=== PATIENT | male | born 1960 | race Caucasian/White ===

== ENCOUNTER 2017-12-14 18:31 | Inpatient (IN) | payer MEDICARE ==
[~2017-12-14 18:31] MED LIST: ISOVUE-370 76%-LOCM 1 ML ONE
[2017-12-14] MEDS ORDERED: Ondansetron HCl/PF 4 MG/2 ML Vial ONE (18:51)
[2017-12-14 18:58] LABS: #Basophils 0.1 thou/uL (0.0-0.2); #Eosinphils 0.6 thou/uL (0.0-0.7); #Lymphocytes 4.2 thou/uL (1.20-3.40); #Monocytes 1.9 thou/uL (0.11-0.59); %Basophils 0.5 % (0.0-1.0); %Eosinophils 2.9 % (0.0-10.0); %Lymphocytes 21.2 % (21.0-51.0); %Monocytes 9.7 % (0.0-10.0); %Neutrophils 65.7 % (42.0-75.0); Hemoglobin 12.3 g/dL (14.0-18.0); Mean Corpuscular HGB CONC 32.4 g/dL (32.0-36.0); Mean Corpuscular Hemoglobin 27.9 pg (27.0-31.0); Mean Corpuscular Volume 85.9 fL (78.0-98.0); Mean Platelet Volume 8.2 fL (7.4-10.4); Platelet Count 478 thou/uL (130-400); White Blood Cell (WBC) Count 19.7 thou/uL (4.8-10.8)
[2017-12-14 19:07] LABS: Bilirubin Negative (Negative); Blood, Urine Large (Negative); Clarity CLOUDY (Clear); Glucose, Urine (Dipstick) Negative (Negative); Leukocyte Large (Negative); Nitrite Negative (Negative); Protein, Urine (Dipstick) 30 mg/dL (Neg-Trace); Specific Gravity, Urine 1.007 (1.002-1.036); Urobilinogen 0.2 mg/dL (0.2-1.0); pH, Urine 5.5 (5.0-9.0)
[2017-12-14 19:10] LABS: Bacteria/HPF None Seen HPF (None Seen); Hyaline Casts/LPF 0-3 HYALINE CAST LPF (0-3 Hyaline); Pathc Cast-AUWi Flag 1.01 (0-2.49); RBC/HPF GREATER THAN 50-TNTC HPF (0-3); Squamous Epithelial None Seen HPF (0-3)
[2017-12-14 19:18] LABS: ALT (SGPT) 41 U/L (8-55); AST (SGOT) 20 U/L (5-34); Albumin 4.4 g/dL (3.5-5.0); Alkaline Phosphatase 102 U/L (40-150); Anion Gap 16 mmol/L (10-20); BUN (Urea Nitrogen) 24 mg/dL (8.4-25.7); Bilirubin, Total 0.2 mg/dL (0.2-1.2); Calc. Creatinine Clearance 0 mL/min (70-130); Calcium 9.4 mg/dL (7.8-10.44); Carbon Dioxide 25 mmol/L (22-29); Chloride 102 mmol/L (98-107); Estimated GFR-MDRD 46; Globulin 3.6 g/dL (2.4-3.5); Glucose 254 mg/dL (70-105); Lipase 87 U/L (8-78); Sodium 138 mmol/L (136-145)
--- NOTE | 2017-12-14 20:02 | CT ---
CT OF THE ABDOMEN AND PELVIS: Date: 12-14-17 Comparison: 11-18-16 History: Abdominal pain, most prominent in the suprapubic region. Technique: Serial axial CT imaging obtained at 5 mm intervals from lung bases through pubic symphysis with IV contrast. Coronal reformatted imaging obtained. FINDINGS: The visualized lung bases appear unremarkable. Cholecystectomy clips are present. No free intraperitoneal air. The hepatic parenchyma is diffusely hypodense suggesting steatosis. The pancreas is grossly unremarka ble. The spleen is nonvisualized, presumably surgically absent. Nonspecific adrenal nodule noted on the right measuring approximately 1.7 cm, as seen on the prior ex am. There is a low density upper pole right renal lesion with Hounsfield units of 15-20 measuring 2.9 cm, similar when compared to prior imaging. This lesion is slightly more prominent than on a prior CT pe rformed 01-25-14. Mildly complex cyst is favored. Follow up renal ultrasound suggested. There is prominent new hydronephrosis and hydroureter, right greater than left, the bilateral ureters dilated to the level of the ureterovesicular junction. The urinary bladder is partially decompressed . In keeping with the provided history of bladder cancer, there is irregular diffuse nodular thickeni ng of the urinary bladder wall. No discrete renal stone disease is seen. Bilateral hydroureter/hydron ephrosis may be on the basis of stricture at the level of bilateral ureterovesicular junctions or on the basis of obstruction from tumor. There is a small fat containing periumbilical hernia. Limited assessment of the bowel without oral co ntrast media demonstrates no evidence for obstruction. The appendix appears grossly unremarkable. There is a subcentimeter right retrocrural node, stable. Subcentimeter stable retroperitoneal nodes a re seen. No lymphadenopathy is appreciated within the abdomen or pelvis. The prostate gland is mildly prominent and heterogeneous, not well characterized on this examination. Review of the osseous structures demonstrates multiple old posterior bilateral rib fractures. No acut e osseous abnormality is seen. IVC filter in place. IMPRESSION: 1. New bilateral hydronephrosis and hydroureter extending to the level of the ureterovesicular juncti on, right greater than left. Urinary bladder demonstrates multifocal nodular thickening, consistent w ith the provided history of bladder cancer. Bilateral hydronephrosis/hydroureter could be on the basi s of underlying tumor at the level of the UVJ bilaterally versus underlying stricture. Urology consul tation is thus advised. 2. Nonspecific adrenal nodule on the right. 3. Hepatic steatosis. 4. Results called to Dr. Conte at 7:20 p.m. 12-14-14. Code CR POS: LEATHA
[2017-12-14] MEDS ORDERED: cefTRIAXone\\ROCEPHIN 1 GM VIAL ONE (20:36)
--- NOTE | 2017-12-14 21:53 | PDOC.FPRHP ---
- History of Present Illness Chief Complaint: R back and testicular pain History of Present Illness: Mr. Davidson is a very pleasant 57YO gentleman with a PMH significant for DMII on insulin & bladder CA who presented to the ED due to worsening rigt low back pain & r-side groin and testicular pain that has gotten progressively worse over the last 4-5 days. He describes the pain as a constant, sharp, currently 8/10 pain that is exacerbated with movement. He says it is somewhat relieved by morphine but that his home [place] dose did not help much with the pain. He has some associated decreased appetite but denies any fever/chills, nausea or vomiting. He states that he is incontinent and has to wear diapers 2/ 2 his bladder CA. However, his urine output has been normal since the onset of the pain with occasional hematuria noted. Of note, the patient has a history of bladder CA and was scheduled to have surgery to remove his bladder in [place] on 12/13 but has since moved back to [place], [place] and would prefer to have his surgery done here. ED Course: The patient was given 1g IV Rocephin per urology's recommendation & IV morphine in the ED. - Allergies/Adverse Reactions Allergies Allergy/AdvReac Type Severity Reaction Status Date / Time venom-honey bee Allergy Verified 12/14/17 22:32 [bee venom (honey bee)] - Home Medications Medication Instructions Recorded Confirmed Type Gabapentin 1,200 mg PO TID 01/11/14 12/14/17 History Levothyroxine Sodium 88 mcg PO DAILY 01/11/14 12/14/17 History glipiZIDE [Glucotrol] 5 mg PO BID 01/11/14 12/14/17 History Amitriptyline HCl [Elavil] 50 mg PO HS 12/14/17 12/14/17 History Amlodipine [Norvasc] 5 mg PO DAILY 12/14/17 12/14/17 History Dexlansoprazole [Dexilant] 60 mg PO DAILY 12/14/17 12/14/17 History Escitalopram Oxalate [Lexapro] 10 mg PO DAILY 12/14/17 12/14/17 History HYDROcodone/Acetaminophen [[place] 1 each PO QID PRN 12/14/17 12/14/17 History 10-325 Tablet] Insulin NPH Human Isophane 40 unit SC BID 12/14/17 12/14/17 History [NovoLIN N] Losartan Potassium [Cozaar] 50 mg PO DAILY 12/14/17 12/14/17 History Tolterodine Tartrate [Detrol LA] 4 mg PO BID 12/14/17 12/14/17 History metFORMIN [Glucophage] 500 mg PO TID-WM 12/14/17 12/14/17 History - History PMHx: insulin dependent DMII, diabetic neuropathy, hypothyroidism, HTN, active bladder cancer PSHx: spleenectomy, IVC filter, crush injury-flail chest, cholecystectomy, & cystoscopies related to bladder CA treatment FHx: Mother - HTN & DMII Father - HTN Social: Drinks socially about twice/month. Former smoker but quit 10 years ago. Smoked 2ppd since her was 10 before quitting. No drug abuse. - Review of Systems General: reports: weight/appetite/sleep changes (Decreased appetite). denies: fever/chills Eyes: denies: eye pain, vision changes ENT: denies: nasal congestion, rhinorrhea Respiratory: denies: cough, shortness of breath Cardiovascular: denies: chest pain Gastrointestinal: reports: diarrhea. denies: nausea, vomiting, constipation, abdominal pain Genitourinary: reports: incontinence, other (+ hematuria & right testicular pain ) Skin: denies: rashes, itching Musculoskeletal: reports: pain (right lower back pain). denies: arthritis/ arthralgias Neurological: denies: numbness, weakness - Vital signs BP: 129/104 HR: 98 RR: 20 Tmax: 98.1F Pox: 96% on RA Wt: 98.99kg - Physical Exam Constitutional: NAD, awake, alert and oriented, well developed HEENT: normocephalic and atraumatic, PERRLA, EOMI, conjunctiva clear, grossly normal vision, grossly normal hearing, oropharynx clear, other (Poor dentition) Neck: supple, FROM, no LAD Heart: RRR, normal S1/S2, no murmurs/rubs/gallops, no edema Lungs: CTAB, no respiratory distress, good air movement, no wheezing Abdomen: bowel sounds present, other (+ distension & tender in RLQ/groin to palpation. Also tender in R mid-abdomen over prior rib fracture from flail chest.) Musculoskeletal: normal structure, ROM grossly normal, other (R flank tender to palpation) Neurological: no focal deficit, CN II-XII intact, normal sensation Skin: no rash/lesions, good turgor, other (2 surgical scar visible on abdomen) Heme/Lymphatic: no unusual bruising or bleeding Psychiatric: normal mood and affect, good judgment and insight Additional comment: exam- Right testicle diffusely tender to palpation but not exqusitely tender on exam. No significant erythema or edema noted compared with the left. No penile discharge or sores noted. FMR H&P: Results - Labs Result Diagrams: 12/15/17 04:07 12/15/17 04:07 Lab results: WBC 19.7 thou/uL (4.8-10.8) H 12/14/17 18:47 Hgb 12.3 g/dL (14.0-18.0) L 12/14/17 18:47 Hct 37.8 % (42.0-52.0) L 12/14/17 18:47 MCV 85.9 fL (78.0-98.0) 12/14/17 18:47 Plt Count 478 thou/uL (130-400) H 12/14/17 18:47 Neutrophils % 65.7 % (42.0-75.0) 12/14/17 18:47 Sodium 138 mmol/L (136-145) 12/14/17 18:47 Potassium 5.0 mmol/L (3.5-5.1) 12/14/17 18:47 Chloride 102 mmol/L (98-107) 12/14/17 18:47 Carbon Dioxide 25 mmol/L (22-29) 12/14/17 18:47 BUN 24 mg/dL (8.4-25.7) 12/14/17 18:47 Creatinine 1.55 mg/dL (0.6-1.3) H 12/14/17 18:47 Glucose 254 mg/dL (70-105) H 12/14/17 18:47 Calcium 9.4 mg/dL (7.8-10.44) 12/14/17 18:47 Total Bilirubin 0.2 mg/dL (0.2-1.2) 12/14/17 18:47 AST 20 U/L (5-34) 12/14/17 18:47 ALT 41 U/L (8-55) 12/14/17 18:47 Alkaline Phosphatase 102 U/L (40-150) 12/14/17 18:47 Serum Total Protein 8.0 g/dL (6.0-8.3) 12/14/17 18:47 Albumin 4.4 g/dL (3.5-5.0) 12/14/17 18:47 Lipase 87 U/L (8-78) H 12/14/17 18:47 Urine Ketones Negative mg/dL (Negative) 12/14/17 18:57 Urine Blood Large (Negative) H 12/14/17 18:57 Urine Nitrite Negative (Negative) 12/14/17 18:57 Ur Leukocyte Esterase Large (Negative) H 12/14/17 18:57 Urine RBC GREATER THAN 50-TNTC HPF (0-3) H 12/14/17 18:57 Urine WBC Greater Than 50-TNTC HPF (0-3) H 12/14/17 18:57 Ur Squamous Epith Cells None Seen HPF (0-3) 12/14/17 18:57 Urine Bacteria None Seen HPF (None Seen) 12/14/17 18:57 - Radiology Interpretation CT scan - abdomen Status: report reviewed by me Additional comment: Bilateral hydronephrosis of UBJ consistent with obstruction 2/2 tumor. FMR H&P: A/P - Problem List (1) CHANDANA (acute kidney injury) Current Visit: Yes Status: Acute Code(s): N17.9 - ACUTE KIDNEY FAILURE, UNSPECIFIED (2) Testicular pain, right Current Visit: Yes Status: Acute Code(s): N50.811 - RIGHT TESTICULAR PAIN (3) Bladder cancer Current Visit: Yes Status: Acute (4) HTN (hypertension) Current Visit: Yes Status: Acute Code(s): I10 - ESSENTIAL (PRIMARY) HYPERTENSION (5) Type 2 diabetes mellitus with diabetic neuropathy Current Visit: Yes Status: Acute Code(s): E11.40 - TYPE 2 DIABETES MELLITUS WITH DIABETIC NEUROPATHY, UNSP (6) Hypothyroidism Current Visit: Yes Status: Acute Code(s): E03.9 - HYPOTHYROIDISM, UNSPECIFIED (7) GERD (gastroesophageal reflux disease) Current Visit: Yes Status: Acute Code(s): K21.9 - GASTRO-ESOPHAGEAL REFLUX DISEASE WITHOUT ESOPHAGITIS (8) Depression Current Visit: Yes Status: Acute Code(s): F32.9 - MAJOR DEPRESSIVE DISORDER , SINGLE EPISODE, UNSPECIFIED - Plan 57YO male with PMH significant for bladder cancer who presented with a CC of right-sided flank, groin and testicular pain that has progressively worsened over the last 4-5 days. 1. CHANDANA: - Cr up to 1.5 compared to last measured value we have in 2013 of 0.67. - CT Abd/pelvis significant for bilateral hydronephrosis that is consistent with obstruction from bladder cancer per radiology. - Plan to consult urology in the AM for possible placement of percutaneous nephrostomy tubes until his surgery can be scheduled. - Rudy continue with PO hydration. - Patient received one dose of rocephin in the ED. Will consider continuing Abx until urology can relieve the obstruction as patient is at increased risk of developing pyelonephritis. - Will get repeat BMP in the AM to continue to monitor renal function. 2. right testicular pain: - Could be referred pain from bladder cancer but cannot r/o torsion or infection at this point. - WBC elevated at 19.7 but patient has remained afebrile. UA was not significant for a UTI but will get a urine culture. - Will get a testicular U/S. 3. Bladder Cancer: - Aware, will consult urology in the AM with hopes of patient being able to establish care here in [place]. - Will continue IV morphine as well as PO norco PRN for pain control. 4. HTN: - Aware. - Will resume home meds. 5. DMII with neuropathy: - Aware. - Will resume home insulin dosing. 6. Hypothyroidism: - Aware. - Will resume home synthroid dose. 7. Depression: - Will resume home meds. 7. GERD: - Aware. - Will resume home meds. FMR H&P: Upper Level - Pertinent history Patient is a 57 year old male who presents to the ED with chief complaint of nausea, back pain, and right testicular pain. His symptoms have been ongoing for the past several days and have been progressively worsening. No inciting factors/trauma. He denies fever, chills, dysuria. He reports reduced PO intake related to this. Pt recently moved to this area from [place], He had most of his urological care there. He was scheduled to have bladder removal surgery there, but pt would like to establish care with a urologist in town. - Pertinent findings Physical Exam: General: Alert and oriented x 3; in no distress. exam: Generalized TTP of right testicle. No scrotal swelling/edema. - Plan Date/Time: 12/14/172144 I, Jonelle Middleton, have evaluated this patient and agree with findings/plan as outlined by consultant internship resident. Pertinent changes/additions are listed here. 1. Acute Testicular Pain - will rule out torsion with Testicular US/doppler 2. Bilateral hydronephrosis and hydroureter, likely secondary to malignancy vs ureteral strictures. - Urology consulted from ED, likely plan to place bilateral percutaneous nephrostomy tubes. - will continue IV Ceftriaxone 3. Acute kidney injury - likely secondary to obstructive uropathy - BUN: Cr < 15 - will recheck-BMP in AM; will likely improve with urological intervention 4. Diabetes - Continue home mediations. - A1C 5. Depression - home meds 6. Hypertension - resume home meds. 7. Hypothyroidism - resume home meds. Attending Addendum - Attending Addendum Date/Time: 12/15/1737 I personally evaluated the patient and discussed the management with Dr. Wright and Kane. I agree with and repeated the History, Examination, Assessment and Plan documented above with any addition or exceptions noted below. Pt with "over 4 days" of testicular pain that comes and goes and is absent right now. No fever, chills, nausea/vomiting, or other acute complaints. Exam relatively unremarkable. No acute findings on testicular exam. No TTP, no elevation, no cremaster able to be elicited, no dot. CHANDANA 2/2 obstructive uropathy, presumably 2/2 bladder cancer. Urology has been consulted. Testicular pain. I anticipate referred from hydronephrosis unless that is longstanding. Sono ordered to r/o torsion. DVT, GI ppx.
[2017-12-14 22:05] VITALS: BMI 34.7
[2017-12-14] MEDS ORDERED: Morphine 4 MG/ML VIAL IV PRN (22:11)
[2017-12-14] MEDS ORDERED: Ondansetron HCl/PF 4 MG/2 ML Vial IVP PRN (22:14)
[2017-12-14] MEDS ORDERED: Morphine 4 MG/ML VIAL IV SCH (22:21)
[2017-12-15] MEDS: HYDROcodone/Acetaminophen 10/325 mg Tablet PO PRN ×3 (00:17→13:45)
[2017-12-15] MEDS: Levothyroxine Sodium 88 MCG TAB PO SCH (04:08)
[2017-12-15 04:34] LABS: Band 4 % (5-11); Eosinophils 3 % (0-10); Hemoglobin 11.7 g/dL (14.0-18.0); Lymphocytes 29 % (21-51); MDiff Complete? YES; Mean Corpuscular HGB CONC 33.2 g/dL (32.0-36.0); Mean Corpuscular Hemoglobin 28.4 pg (27.0-31.0); Mean Corpuscular Volume 85.7 fL (78.0-98.0); Mean Platelet Volume 7.8 fL (7.4-10.4); Metamyelocyte 3 % (0-0); Monocytes 8 % (0-10); Neutrophil 53 % (42-75); PLT Morphology Comment Appears Increased; Platelet Count 463 thou/uL (130-400); RBC Distribution Width 14.1 % (11.5-14.5); Red Blood Cell (RBC) Count 4.11 mill/uL (4.70-6.10); White Blood Cell (WBC) Count 13.3 thou/uL (4.8-10.8)
[2017-12-15 04:35] LABS: Anion Gap 16 mmol/L (10-20); BUN (Urea Nitrogen) 26 mg/dL (8.4-25.7); Calc. Creatinine Clearance 65 mL/min (70-130); Carbon Dioxide 24 mmol/L (22-29); Chloride 104 mmol/L (98-107); Estimated GFR-MDRD 42; Glucose 102 mg/dL (70-105); Potassium 4.5 mmol/L (3.5-5.1); Sodium 139 mmol/L (136-145)
--- NOTE | 2017-12-15 06:14 | PDOC.FM ---
- Subjective Subjective: This is a 57 yo M with PMH significant for bladder cancer found to have bilateral hydronephrosis that is consistent with obstruction from bladder cancer per radiology. On exam today, patient states his pain in his testicle is improved. He notes mild back pain localized in the lower left back and does not radiate. Patient currently NPO for any potential procedures by IR. The patient denies SOB, chest pain, abdominal pain, fever, or NVD. - Objective Vital Signs & Weight: Vital Signs (12 hours) Temp Pulse Resp BP Pulse Ox 12/15/17 03:16 97.8 F 82 16 113/63 95 12/15/17 00:16 98.3 F 94 16 102/58 L 95 12/14/17 22:30 98.1 F 96 18 93 L 12/14/17 21:59 98.1 F 96 18 148/84 H 93 L Weight Weight 97.568 kg Result Diagrams: 12/15/17 04:07 12/15/17 04:07 <Rosa Maria Tran - Last Filed: 12/15/17 12:31> - Objective Vital Signs & Weight: Vital Signs (12 hours) Temp Pulse Resp BP Pulse Ox 12/15/17 15:31 98.2 F 83 16 105/62 92 L 12/15/17 11:39 98 F 89 18 101/64 95 12/15/17 08:20 97.6 F 84 20 93 L 12/15/17 07:45 97.6 F 84 20 102/56 L 93 L Weight Admit Weight 97.568 kg Weight 97.568 kg I&O: 12/14/17 12/15/17 12/16/17 06:59 06:59 06:59 Intake Total 100 Output Total 100 Balance 0 Result Diagrams: 12/15/17 04:07 12/15/17 04:07 <Ann Lake - Last Filed: 12/15/17 16:30> Phys Exam - Physical Examination Constitutional: NAD Patient is resting comfortably on the bed HEENT: moist MMs, sclera anicteric Neck: no JVD, supple, full ROM Respiratory: no wheezing, clear to auscultation bilateral Cardiovascular: RRR, no significant murmur Gastrointestinal: soft, non-tender, positive bowel sounds no CVA tenderness Musculoskeletal: no edema, pulses present TTP in lower left back Neurological: non-focal, moves all 4 limbs Psychiatric: normal affect, A&O x 3 Skin: no rash, normal turgor <Rosa Maria Tran - Last Filed: 12/15/17 12:31> Dx/Plan (1) CHANDANA (acute kidney injury) Code(s): N17.9 - ACUTE KIDNEY FAILURE, UNSPECIFIED Status: Acute (2) Bladder cancer Status: Acute (3) Depression Code(s): F32.9 - MAJOR DEPRESSIVE DISORDER, SINGLE EPISODE, UNSPECIFIED Status : Acute (4) GERD (gastroesophageal reflux disease) Code(s): K21.9 - GASTRO-ESOPHAGEAL REFLUX DISEASE WITHOUT ESOPHAGITIS Status: Acute (5) HTN (hypertension) Code(s): I10 - ESSENTIAL (PRIMARY) HYPERTENSION Status: Acute (6) Hypothyroidism Code(s): E03.9 - HYPOTHYROIDISM, UNSPECIFIED Status: Acute (7) Testicular pain, right Code(s): N50.811 - RIGHT TESTICULAR PAIN Status: Acute (8) Type 2 diabetes mellitus with diabetic neuropathy Code(s): E11.40 - TYPE 2 DIABETES MELLITUS WITH DIABETIC NEUROPATHY, UNSP Status: Acute - Plan Plan: 57YO male with PMH significant for bladder cancer who presented with a CC of right-sided flank, groin and testicular pain that has progressively worsened over the last 4-5 days. CHANDANA - Cr on admission: 1.5 compared to last measured value we have in 2014 of 0.67. Today Cr is 1.69 - CT Abd/pelvis significant for bilateral hydronephrosis that is consistent with obstruction from bladder cancer per radiology. - Plan to consult urology in the AM for possible placement of percutaneous nephrostomy tubes until his surgery can be scheduled. - Will continue with PO hydration. - Patient received one dose of rocephin in the ED. Will consider continuing Abx until urology can relieve the obstruction as patient is at increased risk of developing pyelonephritis. - Will get repeat BMP in the AM to continue to monitor renal function. Right testicular pain - Could be referred pain from bladder cancer but cannot r/o torsion or infection at this point. - WBC elevated at 19.7 -> 13.3. Pt afebrile - UA was not significant for a UTI but will get a urine culture - Testicular U/S: no acute findings Bladder Cancer - Will consult urology - Dr. Paniagua or Dr. Hopper - in the AM with hopes of patient being able to establish care here in [place] - Will continue IV morphine as well as PO norco PRN for pain control. HTN - Will resume home meds. DMII with neuropathy - Will resume home insulin dosing Hypothyroidism - Will resume home synthroid dose Depression - Will resume home meds GERD - Will resume home meds DISPO: home within 1-2 days with follow up with Urology CODE: FULL Case discussed with Dr. Lake <Rosa Maria Tran - Last Filed: 12/15/17 12:31> Attending Addendum - Attending Addendum Date/Time: 12/15/17 2060 I personally evaluated the patient and discussed the management with Dr. Tran. I agree with the History, Examination, Assessment and Plan documented above with any addition or exceptions noted below. Pt with hydronephrosis and hydroureter. Creatinine increased today. WBC improving on antibiotics. Urology has been consulted and we are waiting on their recommendations. Pain is better controlled. <Ann Lake - Last Filed: 12/15/17 16:30>
--- NOTE | 2017-12-15 06:26 | ULT ---
SCROTAL ULTRASOUND: 12/14/2017 HISTORY: Right-sided testicular pain. COMPARISON: None. TECHNIQUE: Multiplanar galeas-scale sonographic imaging of the scrotal contents with Doppler interrogation of the testicles, including color-flow and spectral analysis. FINDINGS: Normal blood flow noted within the bilateral testicles. No intratesticular mass noted on either side . The right testicle measures 4.6 x 2 x 2.7 cm, and the right epididymal head measures approximatel y 1.2 x 0.9 cm. There is a 6 mm right epididymal head cyst. The left testicle measures 3.3 x 2.1 x 2.7 cm and demonstrates normal blood flow without evidence for mass. Small epididymal head cysts are noted, measuring up to 5 mm on the left. Small bilateral hydroceles are noted. IMPRESSION: No acute findings. POS: ENRIQUE
[2017-12-15] MEDS ORDERED: cefTRIAXone\\ROCEPHIN 1 GM in Sodium Chloride 0.9% 100 ML IVPB SCH (07:00)
[2017-12-15] MEDS ORDERED: metFORMIN 500 MG TAB PO SCH ×3 (08:00→09:00)
[2017-12-15] MEDS: Amlodipine 5 MG TAB PO SCH (08:20)
[2017-12-15] MEDS: Gabapentin 300 MG CAP PO SCH ×3 (08:20→21:53)
[2017-12-15] MEDS: Escitalopram Oxalate 10 mg Tablet PO SCH (08:20)
[2017-12-15] MEDS: Losartan 25 MG TAB PO SCH (08:21)
[2017-12-15] MEDS: TROSPIUM 20 MG TABLET PO SCH ×2 (08:21→21:48)
[2017-12-15] MEDS: glipiZIDE 5 MG TAB PO SCH ×2 (08:29→21:48)
[2017-12-15] MEDS ORDERED: Non-Formulary Item 1 EACH (Dexlansoprazole [Dexilant] 60 MG) PO SCH (09:00)
[2017-12-15] MEDS ORDERED: Tolterodine Tartrate LA 4 MG CAP PO SCH (09:00)
[2017-12-15] MEDS: metFORMIN 500 MG TAB PO SCH ×2 (11:50→17:43)
[2017-12-15 17:58] LABS: Prothrombin Time 13.1 SEC (12.0-14.7)
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
[2017-12-15] MEDS: Amitriptyline HCl 25 MG TAB PO SCH (21:48)
[2017-12-15] MEDS ORDERED: Dextrose 50% Abboject 50 ML SYRINGE SLOW IVP PRN (21:57)
[2017-12-15] MEDS ORDERED: Dextrose 5% in Water 1,000 ML IV PRN (21:57)
[2017-12-15] MEDS: NPH, Human Insulin Isophane 300 UNIT/3 ML VIAL SC SCH (21:57)
[2017-12-16 04:58] LABS: Anion Gap 16 mmol/L (10-20); BUN (Urea Nitrogen) 30 mg/dL (8.4-25.7); Calc. Creatinine Clearance 64 mL/min (70-130); Calcium 9.1 mg/dL (7.8-10.44); Carbon Dioxide 23 mmol/L (22-29); Chloride 103 mmol/L (98-107); Estimated GFR-MDRD 41; Glucose 124 mg/dL (70-105); Potassium 4.9 mmol/L (3.5-5.1); Sodium 137 mmol/L (136-145)
[2017-12-16 05:52] LABS: Band 1 % (5-11); Eosinophils 1 % (0-10); Hemoglobin 14.2 g/dL (14.0-18.0); Lymphocytes 27 % (21-51); MDiff Complete? YES; Mean Corpuscular HGB CONC 31.8 g/dL (32.0-36.0); Mean Corpuscular Hemoglobin 27.4 pg (27.0-31.0); Mean Corpuscular Volume 86.4 fL (78.0-98.0); Mean Platelet Volume 8.4 fL (7.4-10.4); Monocytes 11 % (0-10); Neutrophil 60 % (42-75); PLT Morphology Comment Appears Increased; Platelet Count 420 thou/uL (130-400); RBC Distribution Width 14.2 % (11.5-14.5); RBC Morphology Normal; Red Blood Cell (RBC) Count 5.16 mill/uL (4.70-6.10); White Blood Cell (WBC) Count 14.2 thou/uL (4.8-10.8)
[2017-12-16] MEDS: Levothyroxine Sodium 88 MCG TAB PO SCH (05:56)
--- NOTE | 2017-12-16 06:18 | PDOC.FM ---
- Subjective Subjective: This is a 57 yo M with PMH significant for bladder cancer, here for right flank and testicular pain found to have bilateral hydronephrosis and hydroureter. On exam today, patient endorses improved pain. He talked with Dr. Paniagua yesterday and is going back today for a percutaneous nephrostomy tube placement procedure. The patient has no complaints at this time. He denies SOB, chest pain , NVD, constipation, or fever. - Objective Vital Signs & Weight: Vital Signs (12 hours) Temp Pulse Resp BP BP Pulse Ox 12/16/17 04:00 98.0 F 89 20 123/77 93 L 12/16/17 00:00 98.4 F 86 20 125/82 93 L 12/15/17 20:10 97.9 F 89 18 104/64 97 12/15/17 19:23 97.8 F 93 12 102/64 92 L Weight Admit Weight 97.568 kg Weight 97.568 kg I&O: 12/14/17 12/15/17 12/16/17 06:59 06:59 06:59 Intake Total 100 1466 Output Total 100 Balance 0 1466 Result Diagrams: 12/16/17 04:12 12/16/17 04:12 <Rosa Maria Tran - Last Filed: 12/16/17 11:30> - Objective Vital Signs & Weight: Vital Signs (12 hours) Temp Pulse Resp BP BP BP Pulse Ox 12/16/17 08:00 98.1 F 83 18 94 L 12/16/17 07:59 83 142/91 H 12/16/17 07:17 98.1 F 83 18 142/91 H 94 L 12/16/17 04:00 98.0 F 89 20 123/77 93 L Weight Admit Weight 97.568 kg Weight 97.568 kg I&O: 12/15/17 12/16/17 12/17/17 06:59 06:59 06:59 Intake Total 100 1466 Output Total 100 Balance 0 1466 Result Diagrams: 12/16/17 04:12 12/16/17 04:12 <Ann Lake - Last Filed: 12/16/17 12:59> Phys Exam - Physical Examination Constitutional: NAD HEENT: PERRLA, moist MMs, sclera anicteric Neck: supple, full ROM Respiratory: no wheezing, clear to auscultation bilateral Cardiovascular: RRR, no significant murmur, no rub Gastrointestinal: soft, non-tender, no distention, positive bowel sounds no CVA tenderness Musculoskeletal: no edema, pulses present Neurological: non-focal, normal sensation, moves all 4 limbs Psychiatric: normal affect, A&O x 3 Skin: no rash <Rosa Maria Tran - Last Filed: 12/16/17 11:30> Dx/Plan (1) CHANDANA (acute kidney injury) Code(s): N17.9 - ACUTE KIDNEY FAILURE, UNSPECIFIED Status: Acute (2) Bladder cancer Status: Acute (3) Depression Code(s): F32.9 - MAJOR DEPRESSIVE DISORDER, SINGLE EPISODE, UNSPECIFIED Status : Acute (4) GERD (gastroesophageal reflux disease) Code(s): K21.9 - GASTRO-ESOPHAGEAL REFLUX DISEASE WITHOUT ESOPHAGITIS Status: Acute (5) HTN (hypertension) Code(s): I10 - ESSENTIAL (PRIMARY) HYPERTENSION Status: Acute (6) Hypothyroidism Code(s): E03.9 - HYPOTHYROIDISM, UNSPECIFIED Status: Acute (7) Testicular pain, right Code(s): N50.811 - RIGHT TESTICULAR PAIN Status: Acute (8) Type 2 diabetes mellitus with diabetic neuropathy Code(s): E11.40 - TYPE 2 DIABETES MELLITUS WITH DIABETIC NEUROPATHY, UNSP Status: Acute (9) Leukocytosis Code(s): D72.829 - ELEVATED WHITE BLOOD CELL COUNT, UNSPECIFIED Status: Acute - Plan Plan: Plan: 57YO male with PMH significant for bladder cancer who presented with a CC of right-sided flank, groin and testicular pain now improved. CHANDANA - Cr on admission: 1.5 compared to last measured value we have in 2014 of 0.67. Today Cr is 1.71. - CT Abd/pelvis significant for bilateral hydronephrosis that is consistent with obstruction from bladder cancer per radiology. - Dr. Paniagua consulted and plans for placement of percutaneous nephrostomy tubes - Will continue with PO hydration - Patient received one dose of rocephin in the ED. Will consider continuing Abx until urology can relieve the obstruction as patient is at increased risk of developing pyelonephritis. - Will get repeat BMP in the AM to continue to monitor renal function. Right testicular pain - Could be referred pain from bladder cancer vs epididymitis - WBC elevated at 19.7 -> 13.3 -> 14.2. Pt afebrile - UA was not significant for a UTI but will get a urine culture - Testicular U/S: no acute findings Leukocytosis - likely 2/2 to hydronephrosis and hydroureter - Will continue to trend after his procedure today. WBC: 13.3->14.2 - Patient remains afebrile Bladder Cancer - Dr Paniagua is on the case. Plan for percutaneous nephrostomy tube placement. He recommends to continue with procedure in [place] (Jan 13) with his primary urologist as Dr. Paniagua is unable to get him on his schedule any faster. - Will follow up with patient after procedure - Will continue IV morphine as well as PO norco PRN for pain control. HTN - Will resume home meds. DMII with neuropathy - Will resume home insulin dosing Hypothyroidism - Will resume home synthroid dose Depression - Will resume home meds GERD - Will resume home meds DISPO: home within 1-2 days with follow up with Urology CODE: FULL Case discussed with Dr. Lake <Rosa Maria Tran - Last Filed: 12/16/17 11:30> Attending Addendum - Attending Addendum Date/Time: 12/16/17 4855 I personally evaluated the patient and discussed the management with Dr. Tran. I agree with the History, Examination, Assessment and Plan documented above with any addition or exceptions noted below. Patient is having nephrostomy tubes placed. We will f/u with urology recs after surgery. <Ann aLke - Last Filed: 12/16/17 12:59>
[2017-12-16] MEDS: Losartan 25 MG TAB PO SCH (07:57)
[2017-12-16] MEDS: TROSPIUM 20 MG TABLET PO SCH ×2 (07:57→19:52)
[2017-12-16] MEDS: Gabapentin 300 MG CAP PO SCH ×3 (07:57→19:52)
[2017-12-16] MEDS: glipiZIDE 5 MG TAB PO SCH ×2 (07:58→19:53)
[2017-12-16] MEDS: NPH, Human Insulin Isophane 300 UNIT/3 ML VIAL SC SCH ×2 (07:59→20:02)
[2017-12-16] MEDS: cefTRIAXone\\ROCEPHIN 1 GM in Sodium Chloride 0.9% 100 ML IVPB SCH (07:59)
[2017-12-16] MEDS: Escitalopram Oxalate 10 mg Tablet PO SCH (07:59)
[2017-12-16] MEDS: Amlodipine 5 MG TAB PO SCH (07:59)
[2017-12-16] MEDS ORDERED: Sodium Bicarbonate 2.5 MEQ/5 ML VIAL ONE (09:09)
[2017-12-16] MEDS ORDERED: Fentanyl 100 MCG/2 ML VIAL ONE (09:09)
[2017-12-16] MEDS ORDERED: Midazolam HCl 2 mg/2 ml Vial ONE (09:09)
[2017-12-16] MEDS: metFORMIN 500 MG TAB PO SCH ×3 (09:39→16:03)
[2017-12-16] MEDS ORDERED: Iopamidol 370 76% 50 ML VIAL FS ONE (13:51)
--- NOTE | 2017-12-16 14:45 | CT ---
LEFT SIDED NEPHROSTOMY TUBE PLACEMENT: HISTORY: Patient with bilateral hydronephrosis with a history of bladder cancer. TECHNIQUE: Informed consent was obtained from the patient. The left kidney was localized using CT guidance. Th e overlying skin was prepped and draped in the usual sterile manner. A 1% Lidocaine solution was use d to anesthetize the overlying soft tissues. A small dermatotomy was made. A 5 Kazakh Yueh needle w as placed into the left collecting system. An 0.035 wire was introduced using CT guidance. The trac t was dilated using an 8 Kazakh dilator. An 8 Kazakh all-purpose drainage catheter was placed into t he left collecting system. No complications were encountered during the course of the exam. IMPRESSION: Successful placement of a left-sided nephrostomy tube. POS: LEATHA
--- NOTE | 2017-12-16 14:52 | CT ---
NONCONTRAST ENHANCED CT IMAGES OF ABDOMEN AND PELVIS: HISTORY: A patient with recently placed bilateral nephrostomy tubes with hemorrhage noted in the right nephros preston tube. FINDINGS: Noncontrast enhanced CT images of the abdomen and pelvis demonstrate the lung bases to be unremarkabl e. Hepatic steatosis is noted. The patient appears to have had a previous splenectomy. An inferior vena cava filter is in place. Bilateral nephrostomy tubes seen without evidence of significant active bleeding. A small perirenal hematoma is seen which is stable and unchanged since the immediate post nephrostomy tube CT done appr oximately 1.5 hours earlier. Bladder wall thickening is seen compatible with the patient's known malignancy. Umbilical hernia is noted. IMPRESSION: Bilateral nephrostomy tubes in good position without definite evidence of active hemorrhage seen. POS: LEATHA
[2017-12-16 16:49] LABS: Hemoglobin 12.5 g/dL (14.0-18.0)
[2017-12-16] MEDS: HumaLOG 300 UNITS/3 ML VIAL SC PRN (17:56)
[2017-12-16] MEDS: Amitriptyline HCl 25 MG TAB PO SCH (19:52)
[2017-12-16] MEDS: HYDROcodone/Acetaminophen 10/325 mg Tablet PO PRN (21:52)
--- NOTE | 2017-12-17 02:23 | CON ---
DATE OF CONSULTATION: 12/16/2017 REASON FOR CONSULTATION: 1. History of bladder cancer. 2. Right-sided back and testicular pain. 3. Bilateral ureteral obstruction. HISTORY OF PRESENT ILLNESS: Mr. Michael Rosa is a very pleasant 57-year-old large equipment [facility] anic with a history of bladder cancer. He is a routine patient of Dr. Naun Springer in [facility]. He was diagnosed with bladder cancer, evidently undergoing a transurethral resection and has bee n identified, as the patient needing a cystectomy and ileal conduit. Patient reportedly has a bladde r, which does not empty well. In addition, he has had problems with right-sided testicular pain and presented to the emergency department with CT findings of bilateral hydronephrosis and a bump in his creatinine. Patient also had an elevated white blood cell count of 19,700 at admission. Patient opt ed to undergo bilateral percutaneous nephrostomy tube placement, and that was performed today by Dr. Montoya. The patient is evaluated in his room. He is ambulatory at this time. Patient is tolerating a solid diet and has been eating some chicken without difficulty. PHYSICAL EXAMINATION: GENERAL: This is a pleasant, awake, alert, ambulatory, white male in no apparent distress. VITAL SIGNS: Temperature 98.7, pulse 87, respirations 20, blood pressure is 133/79. HEAD, EYES, EARS, NOSE, AND THROAT: Extraocular movements intact. Sclerae anicteric. Oropharynx is clear. NECK: Supple. LUNGS: Clear to auscultation bilaterally. CARDIAC: Regular rate and rhythm. ABDOMEN: Soft and nontender. BACK: There are bilateral percutaneous nephrostomy tubes in place. Patient's tubes appeared to be d raining appropriately at the present time. The right-sided tube has a three-way valve attached to it and apparently has been just flushed and emptied. Patient reports there has been some blood in that bag. On the left side, there is what appears to be straw-colored urine with some trace hematuria in it as well. Both sides appeared to be producing some urine at the present time. I had a lengthy discussion with Mr. Rosa regarding his longer term of care. He is apparently s cheduled for a radical cystoprostatectomy with ileal conduit in [place] with his primary urologis t, Dr. Springer. The patient and I discussed the indications for his surgery and certainly sounds t o have had an appropriate workup. At the present time, patient appears to have bilateral ureteral ob struction. There has been some hematuria and he freshly placed perc tubes, which would be normal in this setting. This appears to be more persistent finding, I may recommend urine cytology be obtained from each side. At the present time, patient is doing well with bilateral perc tubes and appears hi s obstruction and acute events are well managed. Over 35 minutes of consultation and assessment time was spent in evaluation and assessment of this pa tient on 12/16/2017.
[2017-12-17] MEDS: Levothyroxine Sodium 88 MCG TAB PO SCH (04:35)
[2017-12-17 05:47] LABS: Band 2 % (5-11); Eosinophils 1 % (0-10); Hemoglobin 12.2 g/dL (14.0-18.0); Lymphocytes 30 % (21-51); MDiff Complete? YES; Mean Corpuscular HGB CONC 33.2 g/dL (32.0-36.0); Mean Corpuscular Hemoglobin 28.8 pg (27.0-31.0); Mean Corpuscular Volume 86.6 fL (78.0-98.0); Mean Platelet Volume 8.1 fL (7.4-10.4); Monocytes 12 % (0-10); Neutrophil 55 % (42-75); PLT Morphology Comment Appears Increased; Platelet Count 516 thou/uL (130-400); Red Blood Cell (RBC) Count 4.23 mill/uL (4.70-6.10); White Blood Cell (WBC) Count 17.2 thou/uL (4.8-10.8)
[2017-12-17 05:53] LABS: Anion Gap 16 mmol/L (10-20); BUN (Urea Nitrogen) 25 mg/dL (8.4-25.7); Calc. Creatinine Clearance 73 mL/min (70-130); Calcium 9.2 mg/dL (7.8-10.44); Carbon Dioxide 24 mmol/L (22-29); Chloride 104 mmol/L (98-107); Estimated GFR-MDRD 48; Glucose 145 mg/dL (70-105); Potassium 4.9 mmol/L (3.5-5.1); Sodium 139 mmol/L (136-145)
--- NOTE | 2017-12-17 06:05 | PDOC.FM ---
Addendum entered and electronically signed by Rosa Maria Tran MD 12/17/17 12:08 : Ordering cytology from each tube. Per urology patient can be discharged with the tubes in place pending cytology. Addendum entered and electronically signed by Rosa Maria Tran MD 12/17/17 11:47 : Added stool softener and laxative to help with BMs Original Note: - Subjective Subjective: Patient is a 57 yo M with PMH of bladder cancer s/p nephrostomy tube placement for hydronephrosis and hydroureter. On exam today, patient is doing well. He states the procedure went well with no complications and his pain is much better. He has been ambulating and tolerating his diet. He denies any SOB, chest pain, abdominal pain, NVD. - Objective MAR Reviewed: Yes Vital Signs & Weight: Vital Signs (12 hours) Temp Pulse Resp BP Pulse Ox 12/17/17 04:00 97.8 F 85 20 120/81 92 L 12/16/17 23:56 98.7 F 87 20 133/79 92 L 12/16/17 20:00 98.7 F 90 20 131/84 93 L Weight Admit Weight 97.568 kg Weight 97.568 kg I&O: 12/15/17 12/16/17 12/17/17 06:59 06:59 06:59 Intake Total 100 1466 240 Output Total 100 Balance 0 1466 240 Result Diagrams: 12/17/17 04:41 12/17/17 04:41 <Rosa Maria Tran - Last Filed: 12/17/17 11:46> - Objective Vital Signs & Weight: Vital Signs (12 hours) Temp Pulse Resp BP BP Pulse Ox 12/17/17 12:00 98.4 F 93 20 133/84 94 L 12/17/17 09:15 98.1 F 87 20 93 L 12/17/17 08:44 87 148/98 H 12/17/17 07:13 98.1 F 87 20 135/87 93 L Weight Admit Weight 97.568 kg Weight 97.568 kg I&O: 12/16/17 12/17/17 12/18/17 06:59 06:59 06:59 Intake Total 1466 960 Output Total 2200 Balance 1466 -1240 Result Diagrams: 12/17/17 04:41 12/17/17 04:41 <JayaAnn otero - Last Filed: 12/17/17 18:32> Phys Exam - Physical Examination Constitutional: NAD HEENT: PERRLA, moist MMs, sclera anicteric Neck: supple, full ROM Respiratory: no wheezing, clear to auscultation bilateral Cardiovascular: RRR, no significant murmur Gastrointestinal: soft, non-tender, positive bowel sounds nephrostomy tubes in place, hematuria present Musculoskeletal: no edema, pulses present Neurological: non-focal, moves all 4 limbs Psychiatric: A&O x 3 Skin: no rash <Rosa Maria Tran - Last Filed: 12/17/17 11:46> Dx/Plan (1) CHANDANA (acute kidney injury) Code(s): N17.9 - ACUTE KIDNEY FAILURE, UNSPECIFIED Status: Acute (2) Bladder cancer Status: Acute (3) Depression Code(s): F32.9 - MAJOR DEPRESSIVE DISORDER, SINGLE EPISODE, UNSPECIFIED Status : Acute (4) GERD (gastroesophageal reflux disease) Code(s): K21.9 - GASTRO-ESOPHAGEAL REFLUX DISEASE WITHOUT ESOPHAGITIS Status: Acute (5) HTN (hypertension) Code(s): I10 - ESSENTIAL (PRIMARY) HYPERTENSION Status: Acute (6) Hypothyroidism Code(s): E03.9 - HYPOTHYROIDISM, UNSPECIFIED Status: Acute (7) Testicular pain, right Code(s): N50.811 - RIGHT TESTICULAR PAIN Status: Acute (8) Type 2 diabetes mellitus with diabetic neuropathy Code(s): E11.40 - TYPE 2 DIABETES MELLITUS WITH DIABETIC NEUROPATHY, UNSP Status: Acute (9) Leukocytosis Code(s): D72.829 - ELEVATED WHITE BLOOD CELL COUNT, UNSPECIFIED Status: Acute - Plan Plan: 57YO male with PMH significant for bladder cancer who presented with a CC of right-sided flank, groin and testicular pain now improved. CHANDANA - Improving. Cr on admission: 1.5 compared to last measured value we have in 2014 of 0.67. Today Cr is 1.5. - CT Abd/pelvis significant for bilateral hydronephrosis that is consistent with obstruction from bladder cancer per radiology. - Dr. Paniagua consulted and plans for placement of percutaneous nephrostomy tubes. Recommends urine cytology from each side. Will contact Dr. Paniagua today to discuss discharge planning. - Will continue with PO hydration - Patient received one dose of rocephin in the ED. Will consider continuing Abx until urology can relieve the obstruction as patient is at increased risk of developing pyelonephritis. - Will get repeat BMP in the AM to continue to monitor renal function. Right testicular pain - Most likely 2/2 to referred pain from bladder cancer - UA was not significant for a UTI but will get a urine culture - Testicular U/S: no acute findings Leukocytosis - likely 2/2 to hydronephrosis and hydroureter - Will continue to trend after his procedure today. WBC: 13.3->14.2-> 17.2 - Patient remains afebrile Bladder Cancer - Dr Ivy placed percutaneous nephrostomy tubes yesterday. No complications with procedure. No active hemorrhage noted. Patient output 2200 with some blood in urine which is normal after procedure. - Dr. Paniagua recommended to continue with procedure in [place] (Jan 13) with his primary urologist as Dr. Paniagua is unable to get him on his schedule any faster. - Pt doing well after procedure - Will continue IV morphine as well as PO norco PRN for pain control. HTN - Will resume home meds. DMII with neuropathy - Will resume home insulin dosing Hypothyroidism - Will resume home synthroid dose Depression - Will resume home meds GERD - Will resume home meds DISPO: home within in 1-2 days with follow up with Urology CODE: FULL Case discussed with Dr. Lake <Rosa Maria Tran - Last Filed: 12/17/17 11:46> Attending Addendum - Attending Addendum Date/Time: 12/17/17 1832 I personally evaluated the patient and discussed the management with Dr. Tran. I agree with the History, Examination, Assessment and Plan documented above with any addition or exceptions noted below. Bilateral nephrostomy tubes in place. Urinen studies ordered per urology recs. Will d/c home. <Ann Lake - Last Filed: 12/17/17 18:32>
--- NOTE | 2017-12-17 07:25 | CT ---
CT GUIDED RIGHT SIDED NEPHROSTOMY TUBE PLACEMENT: History: Patient with renal cancer, obstructed ureters. We have been asked to place bilateral nephros preston tubes prior to patient having cystectomy. FINDINGS: [employer] [employer] radiograph demonstrates an inferior venocaval filter. Bilateral hydronephrosis is seen. The right kidney was prepped and draped in the usual sterile manner. A 1% Lidocaine solution was used to anesthetize the overlying soft tissues. A small dermatotomy was made. A 5 Slovak Yueh needle was placed into the right collecting system. The right collecting system was accessed. A 035 Amplax wire was introduced. Position was confirmed using CT. An 8 Slovak dilator was placed over the right nephro stomy access. An 8 Slovak all purpose drainage catheter was placed into the right collecting system. Post procedure a small right perirenal hematoma was noted. Noted, after the patient was moved there was some immediate bleeding which occurred into the right ne phrostomy tube. After several minutes the urine nearly cleared. Total hemorrhage is estimated to be a pproximately 100 cc into the drainage bag. The patient was sent to the floor after the bleeding had c leared out of the drainage bag in the right nephrostomy tube. IMPRESSION: Successful right sided nephrostomy tube placement. POS: ENRIQUE
[2017-12-17] MEDS: cefTRIAXone\\ROCEPHIN 1 GM in Sodium Chloride 0.9% 100 ML IVPB SCH (08:42)
[2017-12-17] MEDS: Gabapentin 300 MG CAP PO SCH ×2 (08:43→14:21)
[2017-12-17] MEDS: glipiZIDE 5 MG TAB PO SCH (08:43)
[2017-12-17] MEDS: Losartan 25 MG TAB PO SCH (08:43)
[2017-12-17] MEDS: TROSPIUM 20 MG TABLET PO SCH (08:43)
[2017-12-17] MEDS: metFORMIN 500 MG TAB PO SCH ×2 (08:44→11:00)
[2017-12-17] MEDS: Amlodipine 5 MG TAB PO SCH (08:44)
[2017-12-17] MEDS: NPH, Human Insulin Isophane 300 UNIT/3 ML VIAL SC SCH (08:46)
[2017-12-17] MEDS: Escitalopram Oxalate 10 mg Tablet PO SCH (08:46)
[2017-12-17] MEDS: HYDROcodone/Acetaminophen 10/325 mg Tablet PO PRN (10:51)
[2017-12-17] MEDS: HumaLOG 300 UNITS/3 ML VIAL SC PRN (10:57)
[2017-12-17] MEDS ORDERED: Docusate 100 MG CAP PO PRN (11:44)
[2017-12-17] MEDS ORDERED: Bisacodyl 5 MG TAB PO PRN (11:44)
[2017-12-17 12:06] VITALS: BP 133/84; TEMP 98.4
[2017-12-17] MEDS ORDERED: traMADol HCl 50 MG TAB PO PRN (12:48)
[2017-12-17] MEDS ORDERED: Acetaminophen 500 MG TAB PO PRN (12:49)
[2017-12-17] MEDS ORDERED: HYDROcodone/Acetaminophen 10/325 mg Tablet PO PRN (14:20)
--- NOTE | 2017-12-18 01:38 | DIS-2 ---
DATE OF ADMISSION: 12/14/2017 DATE OF DISCHARGE: 12/17/2017 RESIDENT: Rosa Maria Tran MD ADMITTING ATTENDING: Dr. Yoshi Solano. DISCHARGE ATTENDING: Dr. Ann Lake. CONSULTATIONS: Dr. Paniagua, Urology. PROCEDURES: 1. Abdominal/pelvis CT on 12/14/2017: New bilateral hydronephrosis and hydroureter extending to the level of the ureterovesicular junction, right greater than left. Urinary bladder demonstrates multifocal nodular thickening consistent with the provided history of bladder cancer. Bilateral hydronephrosis/hydroureter could be on the basis of underlying tumor at the level of UVJ bilaterally versus underlying stricture. Nonspecific adrenal nodule on right. Hepatic steatosis. 2. Testicular ultrasound on 12/14: No acute findings, small bilateral hydroceles. 3. Bilateral percutaneous nephrostomy tube placement on 12/16 successful procedure. 4. Abdominal/pelvis CT on 12/16: Bilateral nephrostomy tubes in good position without definite evidence of active hemorrhage. 5. Tube change on 12/16 successful right and left-sided nephrostomy tube placement. 6. Urine cytology pending at time of discharge. PRIMARY DIAGNOSES: Bilateral hydronephrosis and hydroureter secondary to bladder cancer. SECONDARY DIAGNOSES: Hypertension, diabetes, hypothyroidism, depression, and gastroesophageal reflux disease. DISCHARGE MEDICATIONS: 1. Gabapentin 1200 mg oral 3 times daily. 2. Glipizide (Glucotrol) 5 mg oral twice daily. 3. Levothyroxine 88 mcg oral daily. 4. Hydrocodone/acetaminophen ([place]) 1 each oral 4 times daily as needed. 5. Dexlansoprazole (Dexilant) 60 mg oral daily. 6. Tolterodine tartrate (Detrol) 4 mg oral twice daily. 7. Escitalopram oxalate (Lexapro) 10 mg oral daily. 8. Insulin NPH human isophane (Novolin) 40 units subcutaneous twice daily. 9. Amitriptyline (Elavil) 50 mg oral at bedtime. 10. Losartan (Cozaar) 50 mg oral daily. 11. Amlodipine (Norvasc) 5 mg oral daily. 12. Metformin (Glucophage) 500 mg oral 3 times daily with meals. DISCONTINUED MEDICATIONS: None. HISTORY OF PRESENT ILLNESS/HOSPITAL COURSE: This is a 57-year-old male with past medical history of bladder cancer who presented to the ED with right flank and testicular pain. The patient received fluids and medication to control the pain. Dr. Paniagua of Urology was consulted and he recommended bilateral percutaneous nephrostomy tube placement, which was performed by Dr. Montoya. The procedure was successful with no complications. The patient's testicular pain was likely referred due to the hydronephrosis and resolved during his stay. Patient was tolerating his diet and ambulating upon discharge of this pain much improved. He is going to follow up with his primary urologist, Dr. Springer in [place] to perform a radical cystoprostatectomy with ileal conduit. DISPOSITION: Stable. DISCHARGE INSTRUCTIONS: 1. Location: Home. 2. Diet: Consistent carbohydrate, 2000. 3. Activity: Ad-andrey. 4. Follow up with Urology for procedure in [place] in 3 weeks. FAIZAN
== END 2017-12-17 16:19 | disposition home or self-care (01) | DRG 684 ==
LOC: ERS 18:31 → 2SW 21:57 → OBSVTOIN 21:57 → 2NO 12-15 13:26 → 2SW 12-15 13:36 → T4-B 12-15 20:18
PROVIDERS: ADMIT Emergency Medicine; ATTEND Emergency Medicine
PROC: 0T943ZZ Drainage of Left Kidney Pelvis, Percutaneous Approach (ICD-10-PCS; principal; 2017-12-16)
PROC: 0T933ZZ Drainage of Right Kidney Pelvis, Percutaneous Approach (ICD-10-PCS; 2017-12-16)
DX: N17.9 Acute kidney failure, unspecified (principal); N13.1 Hydronephrosis with ureteral stricture, not elsewhere classified; C67.9 Malignant neoplasm of bladder, unspecified; K76.0 Fatty (change of) liver, not elsewhere classified; I10 Essential (primary) hypertension; E11.40 Type 2 diabetes mellitus with diabetic neuropathy, unspecified; Z79.4 Long term (current) use of insulin; E03.9 Hypothyroidism, unspecified; F32.9 Major depressive disorder, single episode, unspecified; K21.9 Gastro-esophageal reflux disease without esophagitis; Z87.891 Personal history of nicotine dependence; N45.2 Orchitis; N50.819 Testicular pain, unspecified
CPT/HCPCS: 36415; 36416; 74176; 74177; 75984; 76870; 77002; 80048; 80053; 81003; 81015; 83690; 85007; 85025; 85027; 85610; 85730; 87086; 88112; 93976; 96365; 96375; 96376; A4216; C1729; J0696; J1815; J2250; J2270; J2405; J3010; J7050